=== PATIENT | male | born 1945 | race Two or more races ===

== ENCOUNTER 2020-10-26 06:28 | Day surgery (SDC) | payer OTHER | END 2020-10-26 13:00 | disposition home or self-care (01) | LOC: AMB-ENDOS 06:28 | PROVIDERS: ATTEND Surgery | DX: D12.0 Benign neoplasm of cecum (principal); D12.3 Benign neoplasm of transverse colon; D12.5 Benign neoplasm of sigmoid colon; Z20.822 Contact with and (suspected) exposure to COVID-19 ==